=== PATIENT | female | born 1995 | race Caucasian/White ===

== ENCOUNTER 2017-04-12 22:21 | Emergency (ER) | payer BC ==
[~2017-04-12] VITALS: Ht 157.5 cm; Wt 47.5 kg
[~2017-04-12 22:21] MED LIST: BCPILLS PO
[2017-04-12 22:30] VITALS: TEMP 36.3; Ht 157.5 cm; Wt 47.5 kg
[2017-04-12] MEDS ORDERED: ONDANSETRON INJ 2 MG/ML 2 ML VIAL IV STA (22:45)
[2017-04-12] MEDS ORDERED: SODIUM CHLORIDE 0.9% 1000ML 1,000 ML IV STA (22:45)
[2017-04-12 22:59] VITALS: O2SAT 98
--- NOTE | 2017-04-12 23:09 | EMERGENCY ROOM VISIT NOTE ---
History Report prepared by Raj: Ed Zhou Under the Supervision of: Dr. Jamar Leonardo D.O. First contact with patient: 22:36 Chief Complaint: SYNCOPE Stated Complaint: DIZZY,FAINTED,WARM,NAUSEOUS Nursing Triage Summary: Patient reports a syncopal episode tonight. Patient reports she was out at a bar with friends when she became red and flushed and had a syncopal episode. Patient reports having one drink tonight two hours prior to the syncopal episode. History of Present Illness The patient is a 22 year old female who presents to the Emergency Room with complaints of a sudden syncopal episode occurring prior to arrival. The patient states that she was at a bar when she started to feel warm and nauseous. She states that she sat down, and when she stood up she blacked out, though she did not fall since she was caught. She states that she is still currently nauseous. The patient denies any neck pain or leg pain or swelling. The patient states that she has been eating and drinking normally, and she has not lost any weight recently. She states that she drank one drink of alcohol about 2 hours ago. The patient states that she has no active medical problems, and she takes control and medicine for her acne. She denies any tobacco or drug use, and she states that she has no history of surgeries. The patient states that her last normal menstrual period was three weeks ago. Source of History: patient Onset: prior to arrival Position: other (global) Quality: other (syncopal episode) Timing: other (sudden) Associated Symptoms: + nausea, No neck pain Review of Systems See HPI for pertinent positives & negatives. A total of 10 systems reviewed and were otherwise negative. Family History Patient reports no known family medical history. Social History Smoking Status: Never Smoker Alcohol Use: none Drug Use: none Occupation Status: [employer] student Current/Historical Medications Scheduled Control Pills ( Control Pills), 1 TAB PO DAILY Dapsone (Topical) (Aczone), 1 APPLN TOP BID Spironolactone (Aldactone), Unknown Dose PO DAILY [Acne Cream], 1 APPLN TOP DIRECTED Allergies Coded Allergies: Amoxicillin (Verified Allergy, Unknown, RASH, 04/12/17) Physical Exam Vital Signs Date Time Temp Pulse Resp B/P (MAP) Pulse Ox O2 Delivery O2 Flow Rate FiO2 04/13/17 00:52 76 16 114/70 98 04/13/17 00:10 90 16 124/76 97 Room Air 04/12/17 23:02 91 04/12/17 22:59 98 Room Air 04/12/17 22:59 83 105/72 101 115/82 108 109/87 04/12/17 22:30 36.3 90 16 111/82 99 Room Air Physical Exam GENERAL: Patient is awake, alert, and in no acute distress. Patient is resting comfortably and showing no signs of anxiety EYES: The conjunctivae are clear. The pupils are round and reactive. EARS, NOSE, MOUTH AND THROAT: The nose is without any evidence of any deformity. Mucous membranes are moist tongue is midline NECK: The neck is nontender and supple. RESPIRATORY: Normal respiratory effort is noted there is no evidence of wheezing rhonchi or rales CARDIOVASCULAR: Regular rate and rhythm noted there no murmurs rubs or gallops normal S1 normal S2 GASTROINTESTINAL: The abdomen is soft. Bowel sounds are present in all quadrants. Abdomen is nontender MUSCULOSKELETAL/EXTREMITIES: There is no evidence of gross deformity full range of motion is noted in the hips and shoulders SKIN: There is no obvious evidence of any rash. There are no petechiae, pallor or cyanosis noted. NEUROLOGIC: Patient is awake alert and oriented x3 strength is symmetric patellar reflexes are 2+ bilaterally Medical Decision & Procedures ER Provider Diagnostic Interpretation: Radiology results as stated below per my review and radiologist interpretation: CT HEAD: Motion artifact. No evidence of acute intracranial abnormality. Radiologist: Rosa Rogel MD X-ray results as stated below per interpretation by me: CHEST One View Heart size is normal. No free air. No definite infiltrate. No acute disease. Laboratory Results 04/12/17 23:11 Red Blood Count 4.69, Mean Corpuscular Volume 81.7, Mean Corpuscular Hemoglobin 29.4, Mean Corpuscular Hemoglobin Concent 36.0, Mean Platelet Volume 10.0, Neutrophils (%) (Auto) 59.9, Lymphocytes (%) (Auto) 33.3, Monocytes (%) (Auto) 5.3, Eosinophils (%) (Auto) 1.0, Basophils (%) (Auto) 0.3, Neutrophils # (Auto) 5.57, Lymphocytes # (Auto) 3.10, Monocytes # (Auto) 0.49, Eosinophils # (Auto) 0.09, Basophils # (Auto) 0.03 04/12/17 23:11 Test 04/12/17 22:50 04/12/17 23:09 04/12/17 23:11 Urine Color YELLOW Urine Appearance CLEAR (CLEAR) Urine pH 5.5 (4.5-7.5) Urine Specific Henry 1.022 (1.000-1.030) Urine Protein NEG (NEG) Urine Glucose (UA) NEG (NEG) Urine Ketones NEG (NEG) Urine Occult Blood TRACE (NEG) Urine Nitrite NEG (NEG) Urine Bilirubin NEG (NEG) Urine Urobilinogen NEG (NEG) Urine Leukocyte Esterase NEG (NEG) Urine WBC (Auto) 1-5 /hpf (0-5) Urine RBC (Auto) 0-4 /hpf (0-4) Urine Hyaline Casts (Auto) 1-5 /lpf (0-5) Urine Epithelial Cells (Auto) >30 /lpf (0-5) Urine Bacteria (Auto) NEG (NEG) Bedside Glucose 88 mg/dl (70-90) White Blood Count 9.30 K/uL (4.8-10.8) Red Blood Count 4.69 M/uL (4.2-5.4) Hemoglobin 13.8 g/dL (12.0-16.0) Hematocrit 38.3 % (37-47) Mean Corpuscular Volume 81.7 fL (80-100) Mean Corpuscular Hemoglobin 29.4 pg (25-34) Mean Corpuscular Hemoglobin Concent 36.0 g/dl (32-36) Platelet Count 241 K/uL (130-400) Mean Platelet Volume 10.0 fL (7.4-10.4) Neutrophils (%) (Auto) 59.9 % Lymphocytes (%) (Auto) 33.3 % Monocytes (%) (Auto) 5.3 % Eosinophils (%) (Auto) 1.0 % Basophils (%) (Auto) 0.3 % Neutrophils # (Auto) 5.57 K/uL (1.4-6.5) Lymphocytes # (Auto) 3.10 K/uL (1.2-3.4) Monocytes # (Auto) 0.49 K/uL (0.11-0.59) Eosinophils # (Auto) 0.09 K/uL (0-0.5) Basophils # (Auto) 0.03 K/uL (0-0.2) RDW Standard Deviation 37.9 fL (36.4-46.3) RDW Coefficient of Variation 12.8 % (11.5-14.5) Immature Granulocyte % (Auto) 0.2 % Immature Granulocyte # (Auto) 0.02 K/uL (0.00-0.02) Prothrombin Time 11.4 SECONDS (9.0-12.0) Prothromb Time International Ratio 1.1 (0.9-1.1) Activated Partial Thromboplast Time 23.8 SECONDS (21.0-31.0) Partial Thromboplastin Ratio 0.9 Anion Gap 10.0 mmol/L (3-11) Est Creatinine Clear Calc Drug Dose 66.7 ml/min Estimated GFR () 93.3 Estimated GFR (Non- 80.5 BUN/Creatinine Ratio 11.4 (10-20) Calcium Level 8.4 mg/dl (8.5-10.1) Magnesium Level 2.1 mg/dl (1.8-2.4) Total Bilirubin 0.7 mg/dl (0.2-1) Direct Bilirubin 0.1 mg/dl (0-0.2) Aspartate Amino Transf (AST/SGOT) 16 U/L (15-37) Alanine Aminotransferase (ALT/SGPT) 19 U/L (12-78) Alkaline Phosphatase 48 U/L (45-117) Troponin I 0.018 ng/ml (0-0.045) Total Protein 7.4 gm/dl (6.4-8.2) Albumin 3.8 gm/dl (3.4-5.0) Thyroid Stimulating Hormone (TSH) 2.990 uIu/ml (0.300-4.500) Human Chorionic Gonadotropin, Qual NEG (NEG) Ethyl Alcohol mg/dL < 3.0 mg/dl (0-3) Laboratory results per my review. Medications Administered Medications (Trade) Dose Ordered Sig/Zia Route Start Time Stop Time Status Last Admin Dose Admin Sodium Chloride 1,000 ml @ 999 mls/hr Q1H1M STAT IV 04/12/17 22:45 04/12/17 23:45 DC 04/12/17 22:45 999 MLS/HR Ondansetron HCl (Zofran Inj) 4 mg NOW STAT IV 04/12/17 22:45 04/12/17 22:47 DC 04/12/17 22:45 4 MG ECG Indication: syncope Rate (beats per minute): 87 Rhythm: normal sinus Findings: no ectopy, other (No significant ST segment abnormality) Comparison ECG Date: 06/02/15 ED Course 2235: The patient was evaluated in room A2. A complete history and physical examination were performed. 2245: Zofran Inj 4mg IV, NSS 1,000 ml @ 999 mls/hr IV 0034: Upon reevaluation, the patient is doing well. I discussed the results and treatment plan with her. She verbalized agreement of the treatment plan. She was discharged home. 0045: Zofran ODT 4mg 1 Home Pack PO Medical Decision Differential diagnosis: Etiologies such as vasovagal event, infection, hypoglycemia, electrolyte abnormalities, cardiac sources, intracerebral event, toxicologic, neurologic, as well as others were entertained. Nursing notes reviewed. The patient is a 22-year-old female who presented to emergency department after having a syncopal episode. I discussed patient's laboratory and radiographic studies with her. She was treated with IV fluids in the emergency department. Her orthostatic vitals did show a slight elevation in her pulse was standing. It is possible this could just represent dehydration but she had other symptoms which may need further workup. She was not tachycardic or hypoxic. The patient' s laboratory results and radiographic studies were discussed with her. She was encouraged to rest and avoid any strenuous activity. She was also encouraged to drink plenty clear liquids. He was also encouraged to follow-up with her family doctor soon as possible discuss further studies such as echocardiogram or Holter monitor. Otherwise she was encouraged to return to the emergency department immediately if symptoms change worsen or the need arises. She was also advised to avoid any alcoholic beverages. Head Trauma GCS Score: 15 Impression Primary Impression: Syncope Additional Impression: Orthostatic hypotension Scribe Attestation The scribe's documentation has been prepared under my direction and personally reviewed by me in its entirety. I confirm that the note above accurately reflects all work, treatment, procedures, and medical decision making performed by me. Departure Information Dispostion Home / Self-Care Referrals No Doctor, Assigned (PCP) Forms HOME CARE DOCUMENTATION FORM, IMPORTANT VISIT INFORMATION Patient Instructions [facility], Syncope Additional Instructions Rest and avoid any strenuous activity. Drink plenty clear liquids. Follow-up with [facility] for reevaluation. You may require further studies such as an echocardiogram and a Holter monitor to further evaluate the cause of your passing out episode. Return to the emergency Department immediately if symptoms change worsen or the need arises. Problem Qualifiers Primary Impression: Syncope Syncope type: unspecified Qualified Codes: R55 - Syncope and collapse
[2017-04-12 23:29] LABS: BASO % 0.3 %; BASO ABS # 0.03 K/uL (0-0.2); COMPLETE YES; HEMATOCRIT 38.3 % (37-47); IG% 0.2 %; LYMPH % 33.3 %; MEAN CELL VOLUME 81.7 fL (80-100); MEAN CORPUSCULAR HEMOGLOBIN 29.4 pg (25-34); MONO % 5.3 %; NEUT % 59.9 %; PLATELET COUNT 241 K/uL (130-400); RED BLOOD COUNT 4.69 M/uL (4.2-5.4)
[2017-04-12 23:42] LABS: INR 1.1 (0.9-1.1); PARTIAL THROMBOPLASTIN RATIO 0.9; PROTHROMBIN TIME (PATIENT) 11.4 SECONDS (9.0-12.0)
[2017-04-12] MEDS ORDERED: DAPS5GEL2 TOP (23:42)
[2017-04-12] MEDS ORDERED: SPIR50TA2 PO (23:42)
[2017-04-12] MEDS ORDERED: ACNE CREAM TOP (23:42)
[2017-04-12 23:48] LABS: URINE APPEARANCE CLEAR (CLEAR); URINE BILIRUBIN NEG (NEG); URINE COLOR YELLOW; URINE EPITHELIAL CELL AUTO >30 /lpf (0-5); URINE NITRITE NEG (NEG); URINE PH 5.5 (4.5-7.5); URINE SPECIFIC GRAVITY 1.022 (1.000-1.030); UROBILINOGEN NEG (NEG)
[2017-04-12 23:48] LABS: BUN/CREATININE RATIO 11.4 (10-20); CALCIUM 8.4 mg/dl (8.5-10.1); MAGNESIUM 2.1 mg/dl (1.8-2.4); POTASSIUM 3.6 mmol/L (3.5-5.1)
[2017-04-12 23:59] LABS: THYROID STIMULATING HORMONE 2.99 uIu/ml (0.300-4.500)
[2017-04-13 00:02] LABS: MANUAL MICROSCOPIC REQUIRED? NO; REVIEW REQ? NO
[2017-04-13 00:10] LABS: PREG INTERNAL NEGATIVE QC NEG CLEAR BACKGROUND; PREG INTERNAL POSITIVE QC POS CONTROL LINE
[2017-04-13] MEDS ORDERED: ONDANSETRON HOME PACK 4MG OD TAB PO ONE (00:45)
[2017-04-13 00:52] VITALS: BP 114/70; PULSE 76; O2SAT 98
--- NOTE | 2017-04-13 06:56 | DIAGNOSTIC IMAGING REPORT ---
CHEST ONE VIEW PORTABLE CLINICAL HISTORY: 22 years-old Female presenting with EVALUATE ALTERED MENTAL STATUS/WEAKNESS. TECHNIQUE: Portable upright AP view of the chest was obtained. COMPARISON: 06/02/2015. FINDINGS: Cardiomediastinal silhouette normal. Lungs and pleural spaces clear. Osseous structures normal. Upper abdomen normal. IMPRESSION: 1. No acute cardiopulmonary disease. Electronically signed by: Jose Mason M.D. 04/13/2017 6:54 AM Dictated Date/Time: 04/13/2017 6:54 AM
--- NOTE | 2017-04-13 06:58 | DIAGNOSTIC IMAGING REPORT ---
HEAD WITHOUT CONTRAST (CT) CLINICAL HISTORY: 22 years-old Female presenting with syncope. TECHNIQUE: Multidetector CT imaging of the head was performed without the use of intravenous contrast. IV contrast: None. A dose lowering technique was used consistent with the principles of ALARA (as low as reasonably achievable). COMPARISON: None. CT DOSE (mGy.cm): The estimated cumulative dose is 1074.96 mGy.cm. FINDINGS: [facility] topogram: Unremarkable. Ventricles and sulci normal in size. Brain parenchyma normal in appearance with preserved borges-white differentiation. No mass effect or midline shift. No hemorrhage or acute territorial infarct. No extra-axial fluid collection. Paranasal sinuses and mastoid air cells clear. Calvarium intact. IMPRESSION: 1. No acute intracranial pathology. Electronically signed by: Jose Mason M.D. 04/13/2017 6:56 AM Dictated Date/Time: 04/13/2017 6:55 AM
== END 2017-04-13 00:52 | disposition home or self-care (01) ==
LOC: C.EDB 22:22
DX: R55 Syncope and collapse (principal); I95.1 Orthostatic hypotension; Z79.3 Long term (current) use of hormonal contraceptives